=== PATIENT | male | born 1970 | race Caucasian/White ===

== ENCOUNTER 2018-08-21 15:47 | Outpatient (CLI) | payer BC ==
--- NOTE | 2018-08-21 17:11 | ULT ---
SCROTAL ULTRASOUND WITH DOPPLER: 08/21/18 PROVIDED CLINICAL HISTORY: Followup. FINDINGS: Comparison is made with the study dated 12/17/15. Right testicle measures about 3.5 x 2.8 x 2.1 cm and demonstrates a simple appearing cyst at the supe rior aspect of the testicle. It measures 3 to 4 mm on the current study. Left testicle measures about 3.0 x 2.9 x 1.9 cm. There is a poorly defined echogenic focus involving the left testicle measuring about 4 mm that appears not significantly changed with respect to the mark or study. The crowley scale appearance of both testicles is otherwise unremarkable. The epididymi appear normal bi laterally. There is no evidence for hydrocele or varicocele. Color doppler and spectral analysis of the testicular waveforms demonstrates normal flow bilaterally. IMPRESSION: Stable exam. POS: TREVA
== END 2018-08-21 15:48 | disposition home or self-care (01) ==
LOC: BICULT 15:47
PROVIDERS: ATTEND Urology
DX: N44.2 Benign cyst of testis (principal)
CPT/HCPCS: 76870; 93976

== ENCOUNTER 2020-10-15 22:00 | Emergency (ER) | payer BC ==
[2020-10-15] MEDS ORDERED: Ondansetron PF 4 MG/2 ML Vial ONE (22:33)
--- NOTE | 2020-10-15 23:08 | RAD ---
Chest one view HISTORY: Chest pain. COMPARISON: 11/26/2019. FINDINGS: Cardiac silhouette is magnified and upper limits of normal in size. Pulmonary vasculature i s unremarkable. Mediastinum is midline. No lobar consolidation or evidence of pneumothorax. Old left anterior mid rib fractures. IMPRESSION : No active cardiopulmonary abnormalities are demonstrated.
[2020-10-15 23:15] LABS: #Basophils 0.1 thou/uL (0.0-0.2); #Eosinphils 0.5 thou/uL (0.0-0.7); #Monocytes 0.8 thou/uL (0.11-0.59); #Neutrophils 5.7 thou/uL (1.40-6.50); %Basophils 1.1 % (0.0-1.0); %Eosinophils 5.9 % (0.0-10.0); %Lymphocytes 22.2 % (21.0-51.0); %Monocytes 8.3 % (0.0-10.0); %Neutrophils 62.6 % (42.0-75.0); Hemoglobin 15.8 g/dL (14.0-18.0); Mean Corpuscular HGB CONC 33.6 g/dL (32.0-36.0); Mean Corpuscular Hemoglobin 27.9 pg (27.0-31.0); Mean Corpuscular Volume 83.1 fL (78.0-98.0); Mean Platelet Volume 9.5 fL (7.4-10.4); Platelet Count 171 thou/uL (130-400); Platelet Morphology Comment Appears Adequate; RBC Distribution Width 12.9 % (11.5-14.5); Red Blood Cell (RBC) Count 5.67 mill/uL (4.70-6.10); White Blood Cell (WBC) Count 9.1 thou/uL (4.8-10.8)
[2020-10-15 23:20] LABS: ALT (SGPT) 19 U/L (8-55); AST (SGOT) 19 U/L (5-34); Albumin 4.3 g/dL (3.5-5.0); Alkaline Phosphatase 80 U/L (40-110); Anion Gap 15 mmol/L (10-20); BUN (Urea Nitrogen) 14 mg/dL (8.9-20.6); Bilirubin, Total 0.6 mg/dL (0.2-1.2); Calc. Creatinine Clearance 0 mL/min (70-130); Calcium 9.4 mg/dL (7.8-10.44); Carbon Dioxide 28 mmol/L (22-29); Chloride 104 mmol/L (98-107); Globulin 3.5 g/dL (2.4-3.5); Glucose 94 mg/dL (70-105); Lipase 38 U/L (8-78); Protein, Total 7.8 g/dL (6.0-8.3); Sodium 143 mmol/L (136-145)
== END 2020-10-16 00:04 | disposition home or self-care (01) ==
LOC: ERS 22:00
DX: T18.128A Food in esophagus causing other injury, initial encounter (principal); R10.13 Epigastric pain; R11.2 Nausea with vomiting, unspecified
CPT/HCPCS: 71045; 80053; 83690; 84484; 85025; 93005; 96374; 96375; J1610; J2405

== ENCOUNTER 2021-05-31 10:58 | Emergency (ER) | payer BC, OTHER ==
[~2021-05-31 10:58] MED LIST: Iopamidol-370 76% 500 ML 1 ML ONE
[2021-05-31] MEDS ORDERED: Ketorolac Tromethamine 30 MG/ML VIAL ONE (12:00)
== END 2021-05-31 12:32 | disposition home or self-care (01) ==
LOC: ERS 10:58
DX: S20.211A Contusion of right front wall of thorax, initial encounter (principal); S30.1XXA Contusion of abdominal wall, initial encounter; W20.8XXA Other cause of strike by thrown, projected or falling object, initial encounter
CPT/HCPCS: 71260; 74177; G0390; J1885; Q9967

== ENCOUNTER 2022-04-05 05:57 | Emergency (ER) | payer BC ==
[2022-04-05] MEDS ORDERED: Ibuprofen 800 MG TAB ONE (06:36)
[2022-04-05] MEDS ORDERED: Acetaminophen 500 MG TAB ONE (06:36)
[2022-04-05] MEDS ORDERED: Ondansetron ODT 4 MG TAB ONE (06:36)
[2022-04-05 06:41] LABS: Bilirubin Negative (Negative); Blood, Urine Negative (Negative); Clarity Clear (Clear); Glucose, Urine (Dipstick) Normal (Negative); Ketone, Urine Negative (Negative); Leukocyte Negative Leu/uL (Negative); Nitrite Negative (Negative); Protein, Urine (Dipstick) 10 mg/dL (Neg-Trace); Specific Gravity, Urine 1.026 (1.002-1.036); Urobilinogen Normal mg/dL (Less than 2); pH, Urine 7.5 (5.0-9.0)
== END 2022-04-05 07:07 | disposition home or self-care (01) ==
LOC: ERS 05:57
DX: B34.9 Viral infection, unspecified (principal)
CPT/HCPCS: 81003; 99283; Q0162

== ENCOUNTER 2024-05-11 21:15 | Emergency (ER) | payer BC | END 2024-05-12 01:53 | disposition left against medical advice (07) | LOC: ERS 21:15 | DX: Z53.21 Procedure and treatment not carried out due to patient leaving prior to being seen by health care provider (principal) | CPT/HCPCS: 71045 ==